=== PATIENT | male | born 1930 | race Caucasian/White ===

== ENCOUNTER 2016-07-13 16:49 | Inpatient (IN) | payer MEDICARE, BC ==
[2016-07-13] MEDS ORDERED: FUROSEMIDE 100 MG SOL IV ONE (17:43)
[2016-07-13] MEDS ORDERED: TORSEMIDE 20 MG TAB PO SCH (18:40)
[2016-07-13] MEDS: ALBUTEROL NEB SOL 2.5MG/3ML 1 VIAL SOL NEB PRN ×2 (18:42→23:58)
[2016-07-13] MEDS: SODIUM CHLORIDE 0.9% FLUSH 10 ML SOL IV SCH ×2 (18:51→20:01)
[2016-07-13] MEDS: SOLUMEDROL 125 MG/2 ML 125 MG/2 ML PDS IV SCH (18:53)
[2016-07-13] MEDS ORDERED: [UNRECOGNIZED DRUG - OTHER] TOP PRN (19:29)
[2016-07-13] MEDS ORDERED: ACETAMINOPHEN 500 MG 500 MG TAB PO PRN (19:29)
[2016-07-13] MEDS ORDERED: IMMODIUM 2 MG PO PRN (19:29)
[2016-07-13] MEDS ORDERED: [UNRECOGNIZED DRUG - OTHER] EACHEYE PRN (19:29)
[2016-07-13] MEDS ORDERED: RIVASTIGMINE 13.3 MG TOP SCH (19:30)
[2016-07-13] MEDS ORDERED: LOPERAMIDE HYDROCHLORIDE 2 MG CAP PO PRN (19:56)
[2016-07-13] MEDS: CEFTRIAXONE 1 GM (PREMIX) 1 GM/50 ML SOL IV SCH (20:00)
[2016-07-13] MEDS ORDERED: ENOXAPARIN 100 MG SOL SC ONE (20:15)
[2016-07-13] MEDS ORDERED: PATIENT EDUCATION 1 MISC PRN (20:33)
[2016-07-13] MEDS ORDERED: ERYTHROMYCIN OPTHAL 1 GM TUBE EACHEYE SCH (21:00)
[2016-07-13] MEDS ORDERED: LOTEPREDNOL ETABONATE EACHEYE SCH (21:00)
[2016-07-13] MEDS: ALBUTEROL/IPRATROPIUM 1 VIAL SOL INH SCH (21:00)
[2016-07-13] MEDS ORDERED: [UNRECOGNIZED DRUG - OTHER] PO SCH (21:00)
[2016-07-13] MEDS: BUSPIRONE HCL 5 MG TAB PO SCH (21:04)
[2016-07-13] MEDS: ACETAMINOPHEN 500 MG 500 MG TAB PO SCH (21:04)
[2016-07-13] MEDS: TRAZODONE HYDROCHLORIDE 50 MG TAB PO SCH (21:04)
[2016-07-13] MEDS: TORSEMIDE 20 MG TAB PO SCH (21:05)
[2016-07-13] MEDS: ATORVASTATIN 10 MG TAB PO SCH (21:06)
[2016-07-13] MEDS: AZITHROMYCIN 250 MG TAB PO SCH (21:09)
[2016-07-13] MEDS: LATANOPROST 0.005% SOL EACHEYE SCH (21:16)
[2016-07-13] MEDS: HUMALOG PEN 100 U/ML SC SCH (21:23)
[2016-07-14] MEDS: SOLUMEDROL 125 MG/2 ML 125 MG/2 ML PDS IV SCH ×4 (01:53→18:18)
[2016-07-14] MEDS: SODIUM CHLORIDE 0.9% FLUSH 10 ML SOL IV SCH ×5 (01:54→18:20)
[2016-07-14] MEDS: ALBUTEROL NEB SOL 2.5MG/3ML 1 VIAL SOL NEB PRN ×2 (03:20→06:34)
[2016-07-14] MEDS ORDERED: LEVOTHYROXINE SODIUM 50 MCG TAB ONE (06:53)
[2016-07-14] MEDS ORDERED: LEVOTHYROXINE 0.025MG 0.025 MG TAB PO SCH (07:00)
[2016-07-14 07:20] LABS: BASOPHILS % (AUTO) 0 % (0-3); EOSINOPHILS % (AUTO) 0 % (0-9); HEMATOCRIT 35 % (39-53); MEAN CORPUSCULAR VOLUME 96 fL (80-100); MONOCYTES % (AUTO) 1.1 % (0-12); NEUTROPHILS % (AUTO) 94.6 % (37-80)
[2016-07-14 07:35] LABS: ALBUMIN 2.8 gm/dl (3.4-5.0); CALCIUM 8.3 mg/dl (8.5-10.1); POTASSIUM 4.8 mMol/L (3.5-5.1)
[2016-07-14] MEDS ORDERED: GUAIFENESIN 200 MG/10 ML SOL PO PRN (08:56)
[2016-07-14] MEDS ORDERED: ENOXAPARIN 100 MG SOL SC SCH (09:00)
[2016-07-14] MEDS ORDERED: SOLUMEDROL 125 MG/2 ML 125 MG/2 ML PDS IV SCH (09:00)
[2016-07-14] MEDS ORDERED: APPL TOP SCH (09:00)
[2016-07-14] MEDS ORDERED: PANTOPRAZOLE SODIUM 40 MG ECT PO SCH (09:00)
[2016-07-14] MEDS ORDERED: INSULIN GLARGINE HUM REC ANLOG 24 UNIT SC SCH (09:00)
[2016-07-14] MEDS ORDERED: [UNRECOGNIZED DRUG - OTHER] SC SCH (09:00)
[2016-07-14] MEDS ORDERED: PEG-400/PROPYLENE GLYCOL 1 DROP SOL EACHEYE PRN (09:15)
[2016-07-14] MEDS: LOTEPREDNOL ETABONATE RIGHTEYE SCH ×4 (09:51→21:01)
[2016-07-14] MEDS: HUMALOG PEN 100 U/ML SC SCH ×4 (10:10→20:53)
[2016-07-14] MEDS: INSULIN GLARGINE, RECOMBINAN 100 U/ML SOL SC SCH (10:15)
[2016-07-14] MEDS: ASPIRIN EC 81 MG PO SCH (10:18)
[2016-07-14] MEDS: BUSPIRONE HCL 5 MG TAB PO SCH ×3 (10:20→20:52)
[2016-07-14] MEDS: FEBUXOSTAT 80 MG PO SCH (10:22)
[2016-07-14] MEDS: TAMSULOSIN HYDROCHLORIDE 0.4 MG CAP PO SCH (10:24)
[2016-07-14] MEDS: ISOSORBIDE MONONITRATE 30 MG TER PO SCH (10:26)
[2016-07-14] MEDS: MEMANTINE HYDROCHLORIDE 28 MG PO SCH (10:27)
[2016-07-14] MEDS: ENOXAPARIN 40 MG SOL SC SCH (10:29)
[2016-07-14] MEDS: PANTOPRAZOLE SODIUM 40 MG ECT PO SCH (10:37)
[2016-07-14] MEDS: AZITHROMYCIN 250 MG TAB PO SCH (10:37)
[2016-07-14] MEDS: RIVASTIGMINE TD SCH (10:39)
[2016-07-14] MEDS: ALBUTEROL/IPRATROPIUM 1 VIAL SOL INH SCH ×4 (10:40→20:56)
[2016-07-14] MEDS: PEG-400/PROPYLENE GLYCOL 1 DROP SOL EACHEYE SCH ×4 (10:42→21:08)
[2016-07-14] MEDS: ERYTHROMYCIN OPTHAL 1 GM TUBE RIGHTEYE SCH ×3 (10:42→20:55)
[2016-07-14] MEDS: TORSEMIDE 20 MG TAB PO SCH ×2 (11:56)
[2016-07-14] MEDS: DIVALPROEX ECC PO SCH (12:44)
[2016-07-14] MEDS: CLOTRIMAZOLE 1% CREAM TOP SCH ×2 (13:55→20:53)
[2016-07-14] MEDS: CEFTRIAXONE 1 GM (PREMIX) 1 GM/50 ML SOL IV SCH (18:26)
[2016-07-14] MEDS: ACETAMINOPHEN 500 MG 500 MG TAB PO SCH (20:52)
[2016-07-14] MEDS: ATORVASTATIN 10 MG TAB PO SCH (20:52)
[2016-07-14] MEDS: TRAZODONE HYDROCHLORIDE 50 MG TAB PO SCH (20:55)
[2016-07-14] MEDS: LATANOPROST 0.005% SOL EACHEYE SCH (21:01)
[2016-07-15] MEDS: SOLUMEDROL 125 MG/2 ML 125 MG/2 ML PDS IV SCH ×4 (00:27→18:11)
[2016-07-15] MEDS: SODIUM CHLORIDE 0.9% FLUSH 10 ML SOL IV SCH ×6 (00:28→17:59)
[2016-07-15] MEDS: LEVOTHYROXINE SODIUM 50 MCG TAB PO SCH (06:18)
[2016-07-15] MEDS: RIVASTIGMINE TD SCH (06:24)
[2016-07-15] MEDS: HUMALOG PEN 100 U/ML SC SCH ×4 (06:27→21:50)
[2016-07-15 07:49] LABS: POTASSIUM 4.7 mMol/L (3.5-5.1)
[2016-07-15] MEDS: ALBUTEROL/IPRATROPIUM 1 VIAL SOL INH SCH ×4 (09:30→21:21)
[2016-07-15] MEDS: ENOXAPARIN 40 MG SOL SC SCH (09:33)
[2016-07-15] MEDS: BUSPIRONE HCL 5 MG TAB PO SCH ×3 (09:34→21:06)
[2016-07-15] MEDS: ASPIRIN EC 81 MG PO SCH (09:34)
[2016-07-15] MEDS: DIVALPROEX ECC PO SCH (09:35)
[2016-07-15] MEDS: FEBUXOSTAT 80 MG PO SCH (09:39)
[2016-07-15] MEDS: TAMSULOSIN HYDROCHLORIDE 0.4 MG CAP PO SCH (09:39)
[2016-07-15] MEDS: ISOSORBIDE MONONITRATE 30 MG TER PO SCH (09:40)
[2016-07-15] MEDS: MEMANTINE HYDROCHLORIDE 28 MG PO SCH (09:41)
[2016-07-15] MEDS: PANTOPRAZOLE SODIUM 40 MG ECT PO SCH (09:41)
[2016-07-15] MEDS: INSULIN GLARGINE, RECOMBINAN 100 U/ML SOL SC SCH (09:45)
[2016-07-15] MEDS: AZITHROMYCIN 250 MG TAB PO SCH (09:47)
[2016-07-15] MEDS: TORSEMIDE 20 MG TAB PO SCH ×2 (09:51→10:12)
[2016-07-15] MEDS ORDERED: INSULIN GLARGINE, RECOMBINAN 100 U/ML SOL SC ONE (09:58)
[2016-07-15] MEDS: CLOTRIMAZOLE 1% CREAM TOP SCH ×2 (10:03→21:09)
[2016-07-15] MEDS: LOTEPREDNOL ETABONATE RIGHTEYE SCH ×4 (10:04→21:08)
[2016-07-15] MEDS: PEG-400/PROPYLENE GLYCOL 1 DROP SOL EACHEYE SCH ×4 (10:04→21:09)
[2016-07-15] MEDS: ERYTHROMYCIN OPTHAL 1 GM TUBE RIGHTEYE SCH ×3 (10:05→21:07)
[2016-07-15] MEDS: CEFTRIAXONE 1 GM (PREMIX) 1 GM/50 ML SOL IV SCH (18:00)
[2016-07-15] MEDS: ATORVASTATIN 10 MG TAB PO SCH (21:08)
[2016-07-15] MEDS: ACETAMINOPHEN 500 MG 500 MG TAB PO SCH (21:10)
[2016-07-15] MEDS: LATANOPROST 0.005% SOL EACHEYE SCH (21:10)
[2016-07-15] MEDS: TRAZODONE HYDROCHLORIDE 50 MG TAB PO SCH (21:13)
[2016-07-16] MEDS: SOLUMEDROL 125 MG/2 ML 125 MG/2 ML PDS IV SCH ×4 (00:15→17:36)
[2016-07-16] MEDS: SODIUM CHLORIDE 0.9% FLUSH 10 ML SOL IV SCH ×3 (01:15→17:44)
[2016-07-16] MEDS: RIVASTIGMINE TD SCH (06:00)
[2016-07-16] MEDS: LEVOTHYROXINE SODIUM 50 MCG TAB PO SCH (06:00)
[2016-07-16 07:29] LABS: POTASSIUM 5.1 mMol/L (3.5-5.1)
[2016-07-16] MEDS: HUMALOG PEN 100 U/ML SC SCH ×4 (07:37→20:39)
[2016-07-16 07:40] LABS: HEMATOCRIT 35 % (39-53); MEAN CORPUSCULAR HGB CONC 35.5 gm/dl (32.0-36.0); MEAN CORPUSCULAR VOLUME 93 fL (80-100)
[2016-07-16 07:56] LABS: BASOPHILS % (MANUAL) 0 % (0-3); EOSINOPHILS % (MANUAL) 0 % (0-9); LYMPHOCYTES % (MANUAL) 2 % (10-50); NORMAL RBCS NORMAL RBCS; NUCLEATED RED BLOOD CELLS 1 /100WBCS
[2016-07-16] MEDS: ALBUTEROL/IPRATROPIUM 1 VIAL SOL INH SCH ×4 (08:19→20:19)
[2016-07-16] MEDS ORDERED: SODIUM CHLORIDE 0.9% 500 ML 500 ML IV ONE (08:20)
[2016-07-16] MEDS: ALBUTEROL NEB SOL 2.5MG/3ML 1 VIAL SOL NEB PRN (08:34)
[2016-07-16] MEDS: PEG-400/PROPYLENE GLYCOL 1 DROP SOL EACHEYE SCH ×4 (08:45→20:32)
[2016-07-16] MEDS: LOTEPREDNOL ETABONATE RIGHTEYE SCH ×4 (08:45→20:22)
[2016-07-16] MEDS: ERYTHROMYCIN OPTHAL 1 GM TUBE RIGHTEYE SCH ×3 (08:45→20:31)
[2016-07-16] MEDS: ASPIRIN EC 81 MG PO SCH (08:49)
[2016-07-16] MEDS: BUSPIRONE HCL 5 MG TAB PO SCH ×3 (08:49→20:28)
[2016-07-16] MEDS: FEBUXOSTAT 80 MG PO SCH (08:51)
[2016-07-16] MEDS: DIVALPROEX ECC PO SCH (08:51)
[2016-07-16] MEDS: MEMANTINE HYDROCHLORIDE 28 MG PO SCH (08:51)
[2016-07-16] MEDS: ISOSORBIDE MONONITRATE 30 MG TER PO SCH (09:00)
[2016-07-16] MEDS: INSULIN GLARGINE, RECOMBINAN 100 U/ML SOL SC SCH (09:01)
[2016-07-16] MEDS: PANTOPRAZOLE SODIUM 40 MG ECT PO SCH (09:03)
[2016-07-16] MEDS: ENOXAPARIN 40 MG SOL SC SCH (09:05)
[2016-07-16] MEDS: CLOTRIMAZOLE 1% CREAM TOP SCH ×2 (09:06→20:34)
[2016-07-16] MEDS: CEFTRIAXONE 1 GM (PREMIX) 1 GM/50 ML SOL IV SCH (17:45)
[2016-07-16] MEDS: LATANOPROST 0.005% SOL EACHEYE SCH (20:04)
[2016-07-16] MEDS: ACETAMINOPHEN 500 MG 500 MG TAB PO SCH (20:30)
[2016-07-16] MEDS: TRAZODONE HYDROCHLORIDE 50 MG TAB PO SCH (20:30)
[2016-07-17] MEDS: SOLUMEDROL 125 MG/2 ML 125 MG/2 ML PDS IV SCH ×4 (01:53→17:46)
[2016-07-17] MEDS: SODIUM CHLORIDE 0.9% FLUSH 10 ML SOL IV SCH ×4 (01:53→17:26)
[2016-07-17] MEDS: LEVOTHYROXINE SODIUM 50 MCG TAB PO SCH (06:21)
[2016-07-17] MEDS: ALBUTEROL NEB SOL 2.5MG/3ML 1 VIAL SOL NEB PRN ×2 (07:27→13:49)
[2016-07-17 07:56] LABS: CALCIUM 7.6 mg/dl (8.5-10.1); POTASSIUM 4.8 mMol/L (3.5-5.1)
[2016-07-17] MEDS: ALBUTEROL/IPRATROPIUM 1 VIAL SOL INH SCH ×4 (08:16→20:38)
[2016-07-17] MEDS: PEG-400/PROPYLENE GLYCOL 1 DROP SOL EACHEYE SCH ×4 (08:16→20:45)
[2016-07-17] MEDS: LOTEPREDNOL ETABONATE RIGHTEYE SCH ×4 (08:17→20:45)
[2016-07-17] MEDS: HUMALOG PEN 100 U/ML SC SCH ×4 (08:18→20:44)
[2016-07-17] MEDS: INSULIN GLARGINE, RECOMBINAN 100 U/ML SOL SC SCH (08:19)
[2016-07-17] MEDS: ENOXAPARIN 40 MG SOL SC SCH (08:19)
[2016-07-17] MEDS: ASPIRIN EC 81 MG PO SCH (08:21)
[2016-07-17] MEDS: BUSPIRONE HCL 5 MG TAB PO SCH ×3 (08:22→20:41)
[2016-07-17] MEDS: PANTOPRAZOLE SODIUM 40 MG ECT PO SCH (08:22)
[2016-07-17] MEDS: DIVALPROEX ECC PO SCH (08:23)
[2016-07-17] MEDS: FEBUXOSTAT 80 MG PO SCH (08:23)
[2016-07-17] MEDS: ERYTHROMYCIN OPTHAL 1 GM TUBE RIGHTEYE SCH ×3 (08:24→21:07)
[2016-07-17] MEDS: ISOSORBIDE MONONITRATE 30 MG TER PO SCH (08:32)
[2016-07-17] MEDS: CLOTRIMAZOLE 1% CREAM TOP SCH ×2 (08:33→21:04)
[2016-07-17] MEDS: MEMANTINE HYDROCHLORIDE 28 MG PO SCH (08:33)
[2016-07-17] MEDS ORDERED: POLYETHYLENE GLYCOL 17 GM/1 TBS PDS PO PRN (09:13)
[2016-07-17] MEDS: RIVASTIGMINE TD SCH (13:16)
[2016-07-17] MEDS ORDERED: LORAZEPAM 0.5 MG TAB PO PRN ×2 (14:38→19:44)
[2016-07-17] MEDS: CEFTRIAXONE 1 GM (PREMIX) 1 GM/50 ML SOL IV SCH (18:35)
[2016-07-17] MEDS: TRAZODONE HYDROCHLORIDE 50 MG TAB PO SCH (20:42)
[2016-07-17] MEDS: LATANOPROST 0.005% SOL EACHEYE SCH (20:46)
[2016-07-17] MEDS: ACETAMINOPHEN 500 MG 500 MG TAB PO SCH (20:52)
[2016-07-18] MEDS: SODIUM CHLORIDE 0.9% FLUSH 10 ML SOL IV SCH ×4 (00:56→17:08)
[2016-07-18] MEDS: SOLUMEDROL 125 MG/2 ML 125 MG/2 ML PDS IV SCH ×6 (00:56→18:28)
[2016-07-18] MEDS: LEVOTHYROXINE SODIUM 50 MCG TAB PO SCH (07:01)
[2016-07-18] MEDS: HUMALOG PEN 100 U/ML SC SCH ×4 (07:08→21:32)
[2016-07-18 07:22] LABS: CALCIUM 7.7 mg/dl (8.5-10.1); POTASSIUM 4.8 mMol/L (3.5-5.1)
[2016-07-18 07:27] LABS: HEMATOCRIT 33 % (39-53); MEAN CORPUSCULAR HGB CONC 36.7 gm/dl (32.0-36.0); MEAN CORPUSCULAR VOLUME 93 fL (80-100)
[2016-07-18 07:48] LABS: ANISOCYTOSIS SLIGHT; BASOPHILS % (MANUAL) 0 % (0-3); EOSINOPHILS % (MANUAL) 0 % (0-9); LYMPHOCYTES % (MANUAL) 2 % (10-50)
[2016-07-18] MEDS: ALBUTEROL/IPRATROPIUM 1 VIAL SOL INH SCH ×4 (08:23→21:39)
[2016-07-18] MEDS: BUSPIRONE HCL 5 MG TAB PO SCH ×3 (08:23→21:33)
[2016-07-18] MEDS ORDERED: SODIUM CHLORIDE 0.9% 500 ML 500 ML IV ONE (08:24)
[2016-07-18] MEDS: ASPIRIN EC 81 MG PO SCH (08:26)
[2016-07-18] MEDS: ENOXAPARIN 40 MG SOL SC SCH (08:26)
[2016-07-18] MEDS: DIVALPROEX ECC PO SCH (08:27)
[2016-07-18] MEDS: FEBUXOSTAT 80 MG PO SCH (08:29)
[2016-07-18] MEDS: ISOSORBIDE MONONITRATE 30 MG TER PO SCH (08:31)
[2016-07-18] MEDS: LOTEPREDNOL ETABONATE RIGHTEYE SCH ×4 (08:31→21:37)
[2016-07-18] MEDS: ERYTHROMYCIN OPTHAL 1 GM TUBE RIGHTEYE SCH ×3 (08:31→21:36)
[2016-07-18] MEDS: PANTOPRAZOLE SODIUM 40 MG ECT PO SCH (08:32)
[2016-07-18] MEDS: MEMANTINE HYDROCHLORIDE 28 MG PO SCH (08:32)
[2016-07-18] MEDS: PEG-400/PROPYLENE GLYCOL 1 DROP SOL EACHEYE SCH ×4 (08:33→21:38)
[2016-07-18] MEDS: TORSEMIDE 20 MG TAB PO SCH (08:34)
[2016-07-18] MEDS: INSULIN GLARGINE, RECOMBINAN 100 U/ML SOL SC SCH (08:35)
[2016-07-18] MEDS: RIVASTIGMINE TD SCH (13:19)
[2016-07-18] MEDS: CLOTRIMAZOLE 1% CREAM TOP SCH ×2 (13:50→21:37)
[2016-07-18] MEDS ORDERED: AMLODIPINE 5 MG TAB PO ONE (18:00)
[2016-07-18] MEDS: CEFTRIAXONE 1 GM (PREMIX) 1 GM/50 ML SOL IV SCH (18:26)
[2016-07-18] MEDS: TRAZODONE HYDROCHLORIDE 50 MG TAB PO SCH (21:34)
[2016-07-18] MEDS: ACETAMINOPHEN 500 MG 500 MG TAB PO SCH (21:38)
[2016-07-18] MEDS: LATANOPROST 0.005% SOL EACHEYE SCH (21:40)
[2016-07-18] MEDS ORDERED: LORAZEPAM 0.5 MG TAB ONE (21:41)
[2016-07-18] MEDS: LORAZEPAM 0.5 MG TAB PO PRN (21:59)
[2016-07-19] MEDS: SOLUMEDROL 125 MG/2 ML 125 MG/2 ML PDS IV SCH ×2 (01:55→06:47)
[2016-07-19] MEDS: SODIUM CHLORIDE 0.9% FLUSH 10 ML SOL IV SCH ×4 (01:55→17:05)
[2016-07-19] MEDS: LEVOTHYROXINE SODIUM 50 MCG TAB PO SCH (06:48)
[2016-07-19] MEDS: RIVASTIGMINE TD SCH (06:48)
[2016-07-19 07:28] LABS: BASOPHILS % (AUTO) 1 % (0-3); EOSINOPHILS % (AUTO) 0 % (0-9); HEMATOCRIT 35 % (39-53); MEAN CORPUSCULAR HGB CONC 35.5 gm/dl (32.0-36.0); MEAN CORPUSCULAR VOLUME 94 fL (80-100); MONOCYTES % (AUTO) 2.7 % (0-12); NEUTROPHILS % (AUTO) 93.3 % (37-80)
[2016-07-19] MEDS: HUMALOG PEN 100 U/ML SC SCH ×5 (07:37→20:02)
[2016-07-19 07:57] LABS: CALCIUM 7.6 mg/dl (8.5-10.1); POTASSIUM 4.6 mMol/L (3.5-5.1)
[2016-07-19] MEDS: ALBUTEROL/IPRATROPIUM 1 VIAL SOL INH SCH ×5 (08:18→20:16)
[2016-07-19] MEDS ORDERED: MORPHINE SULFATE 10 MG/5 ML SOL PO PRN (08:34)
[2016-07-19] MEDS ORDERED: TORSEMIDE 20 MG TAB PO SCH (08:35)
[2016-07-19] MEDS: BUSPIRONE HCL 5 MG TAB PO SCH ×3 (09:18→21:38)
[2016-07-19] MEDS: ASPIRIN EC 81 MG PO SCH (09:18)
[2016-07-19] MEDS: FEBUXOSTAT 80 MG PO SCH (09:18)
[2016-07-19] MEDS: ERYTHROMYCIN OPTHAL 1 GM TUBE RIGHTEYE SCH ×3 (09:18→20:00)
[2016-07-19] MEDS: ISOSORBIDE MONONITRATE 30 MG TER PO SCH (09:18)
[2016-07-19] MEDS: PREDNISONE 20 MG TAB PO SCH (09:19)
[2016-07-19] MEDS: MEMANTINE HYDROCHLORIDE 28 MG PO SCH (09:19)
[2016-07-19] MEDS: LOTEPREDNOL ETABONATE RIGHTEYE SCH ×4 (09:19→20:02)
[2016-07-19] MEDS: PEG-400/PROPYLENE GLYCOL 1 DROP SOL EACHEYE SCH ×4 (09:20→20:12)
[2016-07-19] MEDS: CLOTRIMAZOLE 1% CREAM TOP SCH ×2 (09:20→20:13)
[2016-07-19] MEDS: DIVALPROEX ECC PO SCH (09:21)
[2016-07-19] MEDS: INSULIN GLARGINE, RECOMBINAN 100 U/ML SOL SC SCH (09:23)
[2016-07-19] MEDS: ENOXAPARIN 40 MG SOL SC SCH (09:23)
[2016-07-19] MEDS: CEFDINIR 300 MG CAP PO SCH (13:45)
[2016-07-19 19:47] VITALS: TEMP 97
[2016-07-19] MEDS: TRAZODONE HYDROCHLORIDE 50 MG TAB PO SCH ×2 (19:53→20:15)
[2016-07-19] MEDS: LATANOPROST 0.005% SOL EACHEYE SCH (20:00)
[2016-07-19] MEDS: ACETAMINOPHEN 500 MG 500 MG TAB PO SCH (20:10)
[2016-07-19] MEDS: LORAZEPAM 0.5 MG TAB PO PRN (22:45)
[2016-07-19] MEDS ORDERED: LORAZEPAM 0.5 MG TAB ONE (22:45)
[2016-07-20] MEDS: SODIUM CHLORIDE 0.9% FLUSH 10 ML SOL IV SCH (02:13)
[2016-07-20] MEDS ORDERED: LORAZEPAM 0.5 MG TAB ONE (04:06)
[2016-07-20] MEDS: LORAZEPAM 0.5 MG TAB PO PRN (04:08)
[2016-07-20] MEDS: LEVOTHYROXINE SODIUM 50 MCG TAB PO SCH (06:20)
[2016-07-20] MEDS: RIVASTIGMINE TD SCH (06:20)
[2016-07-20] MEDS: HUMALOG PEN 100 U/ML SC SCH (06:39)
[2016-07-20] MEDS: BUSPIRONE HCL 5 MG TAB PO SCH (08:00)
[2016-07-20] MEDS: DIVALPROEX ECC PO SCH (08:00)
[2016-07-20] MEDS: ASPIRIN EC 81 MG PO SCH (08:01)
[2016-07-20] MEDS: FEBUXOSTAT 80 MG PO SCH (08:03)
[2016-07-20] MEDS: CEFDINIR 300 MG CAP PO SCH (08:04)
[2016-07-20] MEDS: MEMANTINE HYDROCHLORIDE 28 MG PO SCH (08:04)
[2016-07-20] MEDS: PREDNISONE 20 MG TAB PO SCH (08:05)
[2016-07-20] MEDS: ISOSORBIDE MONONITRATE 30 MG TER PO SCH (08:05)
[2016-07-20] MEDS: INSULIN GLARGINE, RECOMBINAN 100 U/ML SOL SC SCH (08:06)
[2016-07-20] MEDS: ENOXAPARIN 40 MG SOL SC SCH (08:07)
[2016-07-20] MEDS: CLOTRIMAZOLE 1% CREAM TOP SCH (08:08)
[2016-07-20] MEDS: ALBUTEROL/IPRATROPIUM 1 VIAL SOL INH SCH (08:21)
[2016-07-20 08:24] VITALS: RESP 34
[2016-07-20] MEDS: PEG-400/PROPYLENE GLYCOL 1 DROP SOL EACHEYE SCH (08:27)
[2016-07-20] MEDS: LOTEPREDNOL ETABONATE RIGHTEYE SCH (08:27)
[2016-07-20] MEDS: ERYTHROMYCIN OPTHAL 1 GM TUBE RIGHTEYE SCH (08:27)
[2016-07-20 08:42] VITALS: PULSE 84; O2SAT 95
[2016-07-20 11:01] VITALS: BP 173/112
== END 2016-07-20 09:10 | disposition hospice, inpatient (51) | DRG 190 ==
LOC: ACUTE CARE 16:59
PROVIDERS: ADMIT Emergency Medicine; ATTEND Emergency Medicine
PROC: F01ZCZZ Transfer Assessment (ICD-10-PCS; principal; 2016-07-15)
PROC: F01ZDZZ Gait and/or Balance Assessment (ICD-10-PCS; 2016-07-15)
PROC: F07M0ZZ Range of Motion and Joint Mobility Treatment of Musculoskeletal System - Whole Body (ICD-10-PCS; 2016-07-15)
DX: J44.1 Chronic obstructive pulmonary disease with (acute) exacerbation (principal); J18.9 Pneumonia, unspecified organism; N18.4 Chronic kidney disease, stage 4 (severe); I50.9 Heart failure, unspecified; E11.9 Type 2 diabetes mellitus without complications; Z79.4 Long term (current) use of insulin; F41.9 Anxiety disorder, unspecified; R53.1 Weakness
CPT/HCPCS: 36415; 71010; 80048; 80053; 82962; 83880; 85007; 85025; 85027; 93306; 94150; 94640; 94664; 94669; 94760; J0696; J1650; J1815; J1817; J1940; J2930; J7603; J7620; Q9957; A6232